=== PATIENT | male | born 1985 | race Caucasian/White ===

== ENCOUNTER 2023-05-31 22:17 | Outpatient (CLI) | payer SELFPAY | END 2023-05-31 22:18 | disposition home or self-care (01) | LOC: AMB 06-21 18:59 | PROVIDERS: Visit Provider Family Medicine | DX: S09.90XA Unspecified injury of head, initial encounter (principal); Y04.2XXA Assault by strike against or bumped into by another person, initial encounter; Y92.9 Unspecified place or not applicable | CPT/HCPCS: A0998 ==